=== PATIENT | female | born 1985 ===

== ENCOUNTER 2022-05-20 09:55 | Inpatient (IN) | payer OTHER ==
[~2022-05-20] VITALS: Ht 170.2 cm; Wt 72.6 kg
[2022-05-24] MEDS ORDERED: DORZOLAMIDE-TIM10 ML (13:07)
[2022-05-24] MEDS ORDERED: DIFLUPREDNATE5 ML (13:07)
[2022-05-26] MEDS ORDERED: GABAPENTIN300 MG PO (07:20)
[2022-05-26] MEDS ORDERED: IBUPROFEN800 MG PO (07:21)
== END 2022-05-26 09:46 | disposition home or self-care (01) | DRG 743 ==
LOC: ADM 12:15 → EDSTATUS 12:15 → O/R 05-24 07:09 → SURG 05-24 12:15 → OB/GYN 05-24 15:18
PROVIDERS: ADMIT Obstetrics & Gynecology Gynecology; ATTEND Obstetrics & Gynecology Gynecology
PROC: 0UT70ZZ Resection of Bilateral Fallopian Tubes, Open Approach (ICD-10-PCS; 2022-05-24)
PROC: 0UT90ZZ Resection of Uterus, Open Approach (ICD-10-PCS; principal; 2022-05-24 12:45)
DX: D25.1 Intramural leiomyoma of uterus (principal); D25.2 Subserosal leiomyoma of uterus; N72 Inflammatory disease of cervix uteri; N80.01 Superficial endometriosis of the uterus; N73.6 Female pelvic peritoneal adhesions (postinfective); Z20.822 Contact with and (suspected) exposure to COVID-19